=== PATIENT | male | born 2000 | race Caucasian/White ===

== ENCOUNTER 2023-06-11 18:19 | Emergency (ER) | payer OTHER ==
[~2023-06-11] VITALS: Ht 172.7 cm; Wt 68.9 kg
[2023-06-11 18:54] VITALS: BP 121/71; PULSE 76; RESP 20; TEMP 98.2; O2SAT 99
[2023-06-11 19:27] VITALS: BP 128/71; PULSE 78; RESP 20; TEMP 98.2; O2SAT 99
[2023-06-11 19:37] VITALS: BP_SYST 128; RESP 20
== END 2023-06-11 19:41 | disposition home or self-care (01) ==
LOC: ER 18:19
DX: S50.01XA Contusion of right elbow, initial encounter (principal); V89.2XXA Person injured in unspecified motor-vehicle accident, traffic, initial encounter; Y93.89 Activity, other specified; Y92.89 Other specified places as the place of occurrence of the external cause; Y99.8 Other external cause status
CPT/HCPCS: 99283; 73070-RT